=== PATIENT | female | born 1995 ===

== ENCOUNTER 2021-08-04 01:17 | Emergency (ER) | payer SELFPAY ==
[2021-08-04] MEDS ORDERED: METOCLOPRAMIDE 10 MG/2 ML INJ IV STA (05:32)
[2021-08-04] MEDS ORDERED: diphenhydrAMINE 50 MG/ML VIAL IV STA (05:32)
[2021-08-04] MEDS ORDERED: KETOROLAC 30 MG/1 ML INJ IV STA (05:32)
[2021-08-04] MEDS ORDERED: SODIUM CHLORIDE 0.9% 1000 ML 1,000 ML IV ONE (05:32)
--- NOTE | 2021-08-04 06:53 | Cat Scan Report ---
CT head/brain wo con INDICATION / CLINICAL INFORMATION: Headache. TECHNIQUE: Axial CT imaging of the brain was obtained without contrast. Coronal and sagittal reformatted imaging obtained and reviewed. All CT scans at this location are performed using CT dose reduction for ALAR A by means of automated exposure control. COMPARISON: None available. FINDINGS: No intracranial hemorrhage, mass, or midline shift. No extra-axial fluid collection or suggestion for acute territorial infarction. Ventricular system and basilar cisterns are unremarkable. Visualized paranasal sinuses and mastoid air cells are well aerated and clear. No calvarial abnormali ty. IMPRESSION: 1. Negative noncontrasted head CT scan. Signer Name: Luisa Murray MD Signed: 08/04/2021 6:49 AM Workstation Name: [id number]
--- NOTE | 2021-08-04 07:38 | Emergency Department Report ---
ED Headache HPI - General Chief Complaint: Headache Stated Complaint: CHEST PAIN/HEADACHE Time Seen by Provider: 08/04/21 05:27 Source: patient - History of Present Illness Timing/Duration: 1 week Head Injury Location: frontal, occipital Recent Head Trauma: no recent headache/trauma, occasional headaches Associated Symptoms: other (Plan of lightheadedness, dizziness, blurry vision). denies: facial pain, fever/chills, nausea/vomiting, nasal congestion, nasal drainage, sinus infection, vision changes Allergies/Adverse Reactions: Allergies No Known Allergies Allergy (Verified 08/04/21 06:09) Home Medications: Ambulatory Orders Butalb/Acetaminophen/Caffeine [Fioricet 50-300-40 mg CAP] 1 cap PO Q8HR PRN #20 cap 08/04/21 ED Review of Systems ROS: Stated complaint: CHEST PAIN/HEADACHE Other details as noted in HPI ED Past Medical Hx - Past Medical History Previous Medical History?: No - Surgical History Past Surgical History?: No - Medications Home Medications: Home Medications Medication Instructions Recorded Confirmed Last Taken Type Butalb/Acetaminophen/Caffeine 1 cap PO Q8HR PRN #20 cap 08/04/21 Unknown Rx [Fioricet 50-300-40 mg CAP] ED Physical Exam - General Limitations: No Limitations General appearance: alert, in no apparent distress - Head Head exam: Present: atraumatic, normocephalic - Eye Eye exam: Present: normal appearance, PERRL, EOMI - ENT ENT exam: Present: normal exam, normal orophraynx, mucous membranes moist, TM's normal bilaterally - Neck Neck exam: Present: normal inspection, full ROM. Absent: tenderness, lymphadenopathy - Respiratory Respiratory exam: Present: normal lung sounds bilaterally. Absent: respiratory distress - Cardiovascular Cardiovascular Exam: Present: regular rate, normal rhythm. Absent: systolic murmur, diastolic murmur, rubs, gallop - GI/Abdominal GI/Abdominal exam: Present: soft, normal bowel sounds - Extremities Exam Extremities exam: Present: normal inspection - Back Exam Back exam: Present: normal inspection - Neurological Exam Neurological exam: Present: alert, oriented X3, CN II-XII intact ( gait coordinated and smooth), normal gait, other (Romberg negative normal finger- nose) - Psychiatric Psychiatric exam: Present: normal affect, normal mood - Skin Skin exam: Present: warm, dry, intact, normal color. Absent: rash ED Course Vital Signs 08/04/21 01:37 Temperature 97.1 F L Pulse Rate 85 Respiratory 18 Rate Blood Pressure 129/77 O2 Sat by Pulse 100 Oximetry ED Medical Decision Making - Radiology Data Radiology results: report reviewed [facility] [address] [place] [address] Cat Scan Report Signed Patient: SANJANA ALDRICH MR#: [id number] : 1995 Acct:[id number] Age/Sex: 26 / F ADM Date: 08/04/21 Loc: ED Attending Dr: Ordering Physician: DAYSI ARIAS Date of Service: 08/04/21 Procedure(s): CT head/brain wo con Accession Number(s): [id number] cc: DAYSI ARIAS CT head/brain wo con INDICATION / CLINICAL INFORMATION: Headache. TECHNIQUE: Axial CT imaging of the brain was obtained without contrast. Coronal and sagittal reformatted imaging obtained and reviewed. All CT scans at this location are performed using CT dose reduction for ALARA by means of automated exposure control. COMPARISON: None available. FINDINGS: No intracranial hemorrhage, mass, or midline shift. No extra-axial fluid collection or suggestion for acute territorial infarction. Ventricular system and basilar cisterns are unremarkable. Visualized paranasal sinuses and mastoid air cells are well aerated and clear. No calvarial abnormality. IMPRESSION: 1. Negative noncontrasted head CT scan. Signer Name: Luisa Murray MD Signed: 08/04/2021 6:49 AM Workstation Name: [id number] Transcribed By: JR Dictated By: Luisa Murray MD Electronically Authenticated By: Luisa Murray MD Signed Date/Time: 08/04/21 0649 DD/ 0647 TD/TT: Print Cancel - Medical Decision Making This patient presents with a headache most consistent with nonemergent headache. Differential diagnosis includes migraine versus tension type headache. No headache red flags. Neurologic exam without evidence of meningismus, focal neurologic findings.Based on the patient's history and physical there is very low clinical suspicion for significant intracranial pathology. The headache was NOT sudden onset, NOT maximal at onset, there are NO neurologic findings, the patient does NOT have a fever, the patient does NOT have any jaw claudication, the patient does NOT endorse a clotting disorder, patient DENIES any trauma or eye pain and the headache is NOT associated with dizziness or ataxia. Presentation not consistent with acute intracranial bleed to include SAH (lack of risk factors, headache history). Presentation not consistent with acute [employer]ICIAN infection to include meningitis or brain abscess, Temporal arteritis unlikely, as is acute angle closure glaucoma given history and physical findings. Presentation not consistent with other acute, emergent causes of headache at this time. Plan to treat symptomatically with pain medication. No indication for imaging/LP at this time. Plan: pain medication, CT brain no, serial reassessment Critical care attestation.: If time is entered above; I have spent that time in minutes in the direct care of this critically ill patient, excluding procedure time. ED Disposition Clinical Impression: Cephalgia, Normal CT scan of head Disposition: 01 HOME / SELF CARE / HOMELESS Is pt being admited?: No Does the pt Need Aspirin: No Condition: Stable Instructions: General Headache Without Cause, [id number], Recurrent Migraine Headache, Migraine Headache Prescriptions: Butalb/Acetaminophen/Caffeine [Fioricet 50-300-40 mg CAP] 1 cap PO Q8HR PRN #20 cap PRN Reason: headache Referrals: PRIMARY CARE, [Primary Care Provider] - 3-5 Days [facility] [Provider Group] - 3-5 Days Print Language: NAURUAN
[2021-08-04 08:35] VITALS: BP 106/70
== END 2021-08-04 08:36 | disposition home or self-care (01) ==
LOC: ED 01:17
DX: R51.9 Headache, unspecified (principal); R93.0 Abnormal findings on diagnostic imaging of skull and head, not elsewhere classified
CPT/HCPCS: 70450; 96361; 96374; 96375; 99283; J1200; J1885; J2765; J7030; Q0162